=== PATIENT | female | born 1950 | race Asian ===

== ENCOUNTER → 2022-11-08 | Emergency (ER) | payer OTHER ==
[~2022-11-08] VITALS: Ht 152.4 cm; Wt 59.9 kg
[~2022-11-08] MED LIST: ACET-206 PO; ANAS1TAB PO; ATOR20TA2 PO; Atorvastatin Calcium PO; BLOOMIS59 PO; CHOL100034 PO; CLOP75TA2 PO; FOLI1TAB26 PO; LIPITOR40 MG PO; LOPE2CAP17 PO; MAGNSUS68 PO; METO50TA63 PO; NICODERM C21 MG/241 TD; QUET25TA2 PO; SERT50TA PO; VITAMIN D31000 UNI4 PO; ZOLOFT25 MG PO
[2022-11-08 00:05] VITALS: TEMP 98.1
[2022-11-08 00:49] LABS: PLATELET COUNT 156 K/uL (152-353)
[2022-11-08 01:25] VITALS: BP 130/58
== END ==
LOC: ED 00:05
PROVIDERS: Family Medicine
DX: Z04.6 Encounter for general psychiatric examination, requested by authority (principal); F03.911 Unspecified dementia, unspecified severity, with agitation; F03.90 Unspecified dementia, unspecified severity, without behavioral disturbance, psychotic disturbance, mood disturbance, and anxiety; E78.00 Pure hypercholesterolemia, unspecified; I10 Essential (primary) hypertension; M62.81 Muscle weakness (generalized); Z20.822 Contact with and (suspected) exposure to COVID-19
CPT/HCPCS: 80053; 85027; 87635; 93005; 99283; U0003